=== PATIENT | female | born 1970 | race Caucasian/White ===

== ENCOUNTER → 2018-09-25 | Outpatient (CLI) | payer BC, OTHER ==
--- NOTE | 2018-09-26 12:20 | REP ---
RIGHT GREAT TOE: 09/25/2018. CLINICAL HISTORY: Pain right great toe. FINDINGS: Four views are provided. There is no visible fracture or avulsion. There are some degenerative changes at the 1st MTP joint with spurs minimally at the IP joint. 1st metatarsal is without fracture. Adjacent bones intact. There is a prominent thickened toenail consistent with onychomycosis. IMPRESSION: 1. Minor degenerative changes at the 1st MTP and IP joint without any other significant bony finding. Electronically Signed by Nagi Parrish MD 09/26/2018 12:25 P
== END ==
LOC: M WUC 13:49
PROVIDERS: ATTEND Physician Assistant
DX: M79.674 Pain in right toe(s) (principal)

== ENCOUNTER → 2020-01-26 | Outpatient (REF) | payer OTHER | LOC: M LAB REF 19:17 | PROVIDERS: ATTEND Physician Assistant Medical | DX: Z11.59 Encounter for screening for other viral diseases (principal) ==